=== PATIENT | male | born 1985 | race Two or more races ===

== ENCOUNTER 2022-08-09 22:25 | Emergency (ER) | payer OTHER ==
[~2022-08-09] VITALS: Ht 182.9 cm; Wt 131.8 kg
[2022-08-09] MEDS ORDERED: adenosine 3mg/ml 2ml vial IV ONE ×2 (22:34→22:41)
[2022-08-09] MEDS ORDERED: MIDAZolam 5mg/ml 2ml vial ONE (22:44)
[2022-08-09] MEDS ORDERED: aspirin 81mg tab.chew PO ONE (22:55)
[2022-08-09 22:57] LABS: BASOPHILS # (AUTO) 0.1 X10'3 (0-0.2); BASOPHILS % (AUTO) 0.5 % (0-1); EOSINOPHILS # (AUTO) 0.3 X10'3 (0-0.9); EOSINOPHILS % (AUTO) 2.2 % (0-6); HEMATOCRIT 48.6 % (42.0-52.0); HEMOGLOBIN 17.1 g/dl (14.0-17.9); LYMPHOCYTES # (AUTO) 6.9 X10'3 (1.1-4.8); LYMPHOCYTES % (AUTO) 52.5 % (21-51); MEAN CORPUSCULAR HEMOGLOBIN 31.9 PG (27.0-31.0); MEAN CORPUSCULAR HGB CONC 35.3 g/dL (33.0-36.5); MEAN CORPUSCULAR VOLUME 90.5 FL (78-98); MONOCYTES # (AUTO) 0.8 X10'3 (0-0.9); MONOCYTES % (AUTO) 6.3 % (2-12); NEUTROPHILS % (AUTO) 38.5 % (42-75); PLATELET COUNT 334 X10'3 (140-440); RED BLOOD COUNT 5.37 X10'6 (4.70-6.10); RED CELL DISTRIBUTION WIDTH 12.4 % (11.5-14.5); WHITE BLOOD COUNT 13.1 X10'3 (4.5-11.0)
[2022-08-09 23:16] LABS: ALBUMIN 4.3 G/DL (3.4-5.0); ALBUMIN/GLOBULIN RATIO 1.2 (1.1-1.5); ALKALINE PHOSPHATASE 95 IU/L (46-116); BILIRUBIN,TOTAL 0.6 MG/DL (0.1-1.0); BLOOD UREA NITROGEN 17 MG/DL (7-18); BUN/CREATININE RATIO 14.2 (10.0-20.0); CALCIUM 8.5 MG/DL (8.5-10.1); MAGNESIUM 1.7 MG/DL (1.5-2.4); SODIUM 136 MMOL/L (135-145); TOTAL CARBON DIOXIDE 24.8 MMOL/L (24-32); TOTAL PROTEIN 7.8 G/DL (6.4-8.2); eGFR 69 ML/MIN
[2022-08-09 23:22] LABS: APTT 28 SECONDS (22-32)
[2022-08-09 23:47] LABS: ALANINE AMINOTRANSFERASE 47 U/L (12-78); ASPARTATE AMINO TRANSFERASE 25 U/L (10-37); GLUCOSE 166 MG/DL (70-104)
[2022-08-09 23:52] LABS: POTASSIUM 3.2 MMOL/L (3.5-5.1)
[2022-08-09 23:53] LABS: CHLORIDE 100 MMOL/L (99-107)
[2022-08-09 23:54] LABS: ANION GAP 11 (8-16)
[2022-08-10 00:03] LABS: D-DIMER < 0.19 MG/L FEU (0-0.50)
[2022-08-10 00:55] LABS: PLATELET ESTIMATE NORMAL; SMUDGE CELLS FEW; TOTAL CELLS COUNTED 100
[2022-08-10] MEDS ORDERED: potassium Cl 20 mEq SR tablet PO STA (00:59)
[2022-08-10 01:51] VITALS: BP 112/68
--- NOTE | 2022-08-10 01:54 | NUR ---
AWARE OF TROPONIN PRIOR TO D/C
== END 2022-08-10 01:54 | disposition home or self-care (01) ==
LOC: ER 22:26
DX: I47.1 Supraventricular tachycardia (principal); E87.6 Hypokalemia
CPT/HCPCS: 36415; 71045; 80053; 83735; 83880; 84484; 85007; 85025; 85379; 85610; 85730; 92960; 93005; 99285; J0153; J2250